=== PATIENT | female | born 1985 | race Hispanic/Latino ===

== ENCOUNTER 2018-01-10 11:12 | Emergency (ER) | payer SELFPAY ==
[2018-01-10 11:16] VITALS: BP 148/99; PULSE 109; TEMP 97; O2SAT 98; BMI 23.5
--- NOTE | 2018-01-10 11:40 | ED PDOC ---
HPI: General Adult Time Seen by Provider: 01/10/18 11:13 Chief Complaint (Nursing): Med Refill Chief Complaint (Provider): Medication refill History Per: Patient History/Exam Limitations: no limitations Additional Complaint(s): 32 yo female with ADD presents for medication refill. PT states she has been taking Adderall since she was 14 years old. Pt states that she takes 2 a day 20mg. Pt states she filled Rx for #60 yesterday which she lost while running errands. Pt states she looked everywhere and cannot find medications. Past Medical History Reviewed: Historical Data, Nursing Documentation, Vital Signs Vital Signs: Last Vital Signs Temp 97 F L 01/10/18 11:15 Pulse 109 H 01/10/18 11:15 Resp BP 148/99 H 01/10/18 11:15 Pulse Ox 98 01/10/18 11:15 - Medical History Other PMH: ADD - Surgical History Surgical History: No Surg Hx - Family History Family History: States: No Known Family Hx - Home Medications Home Medications: Ambulatory Orders Medication Instructions Recorded Amphetamine Salt Combination 20 mg PO BID 01/10/18 [Adderall] - Allergies Allergies/Adverse Reactions: Allergies Allergy/AdvReac Type Severity Reaction Status Date / Time No Known Allergies Allergy Verified 01/10/18 11:23 Review of Systems ROS Statement: Except As Marked, All Systems Reviewed And Found Negative Physical Exam - Reviewed Nursing Documentation Reviewed: Yes Vital Signs Reviewed: Yes - Physical Exam Appears: Positive for: Well, Non-toxic, No Acute Distress Head Exam: Positive for: ATRAUMATIC, NORMAL INSPECTION, NORMOCEPHALIC Skin: Positive for: Normal Color, Warm, DRY Eye Exam: Positive for: Normal appearance ENT: Positive for: Normal ENT Inspection Neck: Positive for: Normal Respiratory: Negative for: Accessory Muscle Use, Respiratory Distress Back: Positive for: Normal Inspection Extremity: Positive for: Normal ROM Neurologic/Psych: Positive for: Alert, Oriented - ECG O2 Sat by Pulse Oximetry: 98 Medical Decision Making Medical Decision Making: Pt states that she was given Rx by PMD not psychiatrist. Discuss calling PMD tomorrow for new Rx and patient states her PMD is on vacation for 4 days. Pt gets agitated when told she will not get Rx for Adderall since it is a controlled substance. Pt then asks if she is going to get a bill, when told yes , she states "for nothing". Pt then refused to sign discharge papers and registration papers. Pt left ER and refused repeat vitals. Disposition - Clinical Impression Clinical Impression: ADD (attention deficit disorder) - Disposition Disposition: Routine/Home Disposition Time: 11:33 Condition: STABLE
== END 2018-01-10 11:41 | disposition left against medical advice (07) ==
LOC: H.ER 11:12
DX: Z76.0 Encounter for issue of repeat prescription (principal); F90.9 Attention-deficit hyperactivity disorder, unspecified type